=== PATIENT | female | born 1985 | race Caucasian/White ===

== ENCOUNTER 2020-08-27 09:16 | Emergency (ER) | payer SELFPAY ==
[2020-08-27 09:49] LABS: Bacteria,Urine 2+ /HPF (Negative); Bilirubin,Urine NEG (Negative); Blood,Urine NEG (Negative); Color,Urine Yellow (Yellow); Mucus,Urine 1+ /HPF; Protein,Urine <15 mg/dL mg/dL (Negative); Urobilinogen,Urine < 2.0 mg/dL (<2.0)
[2020-08-27 10:01] LABS: HCG Qualitative,Urine Positive (Negative)
--- NOTE | 2020-08-27 12:01 | Emergency Department Report ---
Chief Complaint: Abdominal Pain Stated Complaint: CHECK UP Time Seen by Provider: 08/27/20 11:24 - HPI History of Present Illness: This is a 35-year-old who presents to the ED stating she is about 8 weeks in 1-9 checkup. Patient states last menstrual period as June 27, 2020. Patient states she just moved to the area and does not have OB yet. Patient states she took a test with acute that was all she found out she was . Patient states that she has had some nausea, vomiting but otherwise no other symptoms. Patient denies fever/chills/abdominal pain, chest pain, vaginal bleeding, pelvic pain or any other symptoms. - ROS Review of Systems: As noted in HPI - Exam Vital Signs: Vital Signs 08/27/20 09:23 Temperature 97.8 F Pulse Rate 61 Respiratory 18 Rate Blood Pressure 129/83 [Right] O2 Sat by Pulse 100 Oximetry Physical Exam: GENERAL: Alert and oriented x3, no apparent distress, Normal Gait, atraumatic. HEAD: Head is normocephalic and a-traumatic. LUNGS: Symetrical with respiration, No wheezing, no rales or crackles, CTAB. HEART: S1, S2 present, regular rate and rhythm without murmur, no rubs, no gallops. Non tender to palpation ABDOMEN: No organomegaly was noted,Positive bowel sounds, soft, and non- distended. . Nontender to palpation on all Quadrants, NO CVA tenderness. SKIN: Warm and dry, No lesions, No ulceration or induration present. MSE screening note: Focused history and physical exam performed. Due to findings the following was ordered: ED Medical Decision Making - Medical Decision Making This 35-year-old female presented for checkup in the emergency room. I evaluated patient. Urinalysis and urine test confirmed . Patient was in no medical distress or had any medical emergency so will refer out to OB. Discussed with patient to follow-up with [facility] in 2 to 3 days. Vital signs are normal patient understands instructions and is in no acute distress. I did discuss the patient if she has any new or worsening symptoms she may return to the ED. ED Disposition for MSE Clinical Impression: , test positive Disposition: - TO HOME OR SELFCARE Is pt being admited?: No Does the pt Need Aspirin: No Condition: Stable Instructions: Morning Sickness (ED), (ED) Additional Instructions: Make sure to follow up with the [facility] as discussed. Take all your medications as you've been prescribed. If you have any worsening symptoms or develop new symptoms please return to ED immediately. Prescriptions: Pnv No.121/Iron/Folic Acid [ Multivitamin Tablet] 1 each PO DAILY #60 ta blet Metoclopramide [Reglan] 10 mg PO TID #60 tab Referrals: [facility] [Provider Group] - 3-5 Days [facility] [Provider Group] - 3-5 Days [facility] [Provider Group] - 3-5 Days Forms: Work/School Release Form(ED) Time of Disposition: 12:06
[2020-08-27 12:31] VITALS: BP 131/80
== END 2020-08-27 12:32 | disposition home or self-care (01) ==
LOC: ED 09:16
DX: Z32.01 Encounter for pregnancy test, result positive (principal)
CPT/HCPCS: 81001; 81025; 99283